=== PATIENT | female | born 1985 ===

== ENCOUNTER 2017-02-21 17:59 | Emergency (ER) | payer SELFPAY ==
[2017-02-21 18:00] VITALS: BMI 26.5
--- NOTE | 2017-02-21 18:18 | ED PDOC ---
Arrival/HPI - General Chief Complaint: Lower Extremity Problem/Injury Time Seen by Provider: 02/21/17 18:12 Historian: Patient - History of Present Illness Narrative History of Present Illness (Text): 02/21/17 18:16 31yo female present with left foot pain s/p twisting her foot yesterday. States she twisted her foot, while walking on uneven sidewalk. She notes that her pain is usually when she first steps on her foot, and then it improved as she walks on her foot. states she took 400mg of Aleve 3hours ago with some relieve. denies any other complaint. Past Medical History - Provider Review Nursing Documentation Reviewed: Yes - Infectious Disease Hx of Infectious Diseases: None - Cardiac Hx Cardiac Disorders: No - Pulmonary Hx Respiratory Disorders: No - Neurological Hx Neurological Disorder: No - HEENT Hx HEENT Disorder: No - Renal Hx Renal Disorder: No - Endocrine/Metabolic Hx Endocrine Disorders: No - Hematological/Oncological Hx Blood Disorders: No - Integumentary Hx Dermatological Disorder: No - Musculoskeletal/Rheumatological Other/Comment: FX TIB/FIB L - Gastrointestinal Hx Gastrointestinal Disorders: No - Genitourinary/Gynecological Hx Genitourinary Disorders: No - Psychiatric Hx Psychophysiologic Disorder: No Hx Substance Use: No - Surgical History Hx Musculoskeletal Surgery: Yes (tib-fib surgery) - Anesthesia Hx Anesthesia: Yes Family/Social History - Physician Review Nursing Documentation Reviewed: Yes Family/Social History: Unknown Family HX Smoking Status: Never Smoked Hx Alcohol Use: No Hx Substance Use: No Allergies/Home Meds Allergies/Adverse Reactions: Allergies No Known Allergies Allergy (Verified 02/21/17 18:05) Review of Systems - Physician Review All systems were reviewed & negative as marked: Yes - Review of Systems Constitutional: Normal Eyes: Normal ENT: Normal Respiratory: Normal Cardiovascular: Normal Gastrointestinal: Normal Genitourinary Female: Normal Musculoskeletal: Arthralgias (Left foot\) Skin: Normal Neurological: Normal Endocrine: Normal Hemo/Lymphatic: Normal Psychiatric: Normal Physical Exam Vital Signs Reviewed: Yes Vital Signs Temp Pulse Resp BP Pulse Ox 02/21/17 18:13 99.1 F 92 H 16 99 02/21/17 18:06 99.1 F 92 H 16 115/77 99 Temperature: Afebrile Blood Pressure: Normal Pulse: Regular Respiratory Rate: Normal Appearance: Positive for: Well-Appearing, Non-Toxic, Comfortable Pain Distress: None Mental Status: Positive for: Alert and Oriented X 3 - Systems Exam Head: Present: Atraumatic, Normocephalic Pupils: Present: PERRL Extroacular Muscles: Present: EOMI Conjunctiva: Present: Normal Mouth: Present: Moist Mucous Membranes Neck: Present: Normal Range of Motion Respiratory/Chest: Present: Clear to Auscultation, Good Air Exchange. No: Respiratory Distress, Accessory Muscle Use Cardiovascular: Present: Regular Rate and Rhythm, Normal S1, S2. No: Murmurs Abdomen: Present: Normal Bowel Sounds. No: Tenderness, Distention, Peritoneal Signs Back: Present: Normal Inspection Upper Extremity: Present: Normal Inspection. No: Cyanosis, Edema Lower Extremity: Present: NORMAL PULSES, Normal ROM, Neurovascularly Intact. No : Edema, Tenderness, Swelling, Erythema, Deformity, Temperature Abnormalties Neurological: Present: GCS=15, CN II-XII Intact, Speech Normal Skin: Present: Warm, Dry, Normal Color. No: Rashes Psychiatric: Present: Alert, Oriented x 3, Normal Insight, Normal Concentration Medical Decision Making ED Course and Treatment: 02/21/17 18:28 Left foot xray - No acute fracture/dislocation noted Result was DW the pt Mitchell wrap applied. Advised to apply ice to area. Referred to her PMD. TRT ED for any new or worsening symptoms. - RAD Interpretation Radiology Orders: 02/21/17 18:16 FOOT LEFT 3 VIEWS ROUTINE [RAD] Stat Disposition/Present on Arrival - Present on Arrival Any Indicators Present on Arrival: No History of DVT/PE: No History of Uncontrolled Diabetes: No Urinary Catheter: No History of Decub. Ulcer: No History Surgical Site Infection Following: None - Disposition Have Diagnosis and Disposition been Completed?: Yes Diagnosis: Foot sprain Disposition: HOME/ ROUTINE Disposition Time: 18:55 Patient Problems: Current Active Problems Problem Status Onset Foot sprain Acute Condition: STABLE Discharge Instructions (ExitCare): Foot Sprain (ED) Additional Instructions: follow up with your Doctor Return to ED for any new or worsening symptoms Prescriptions: Ibuprofen [Motrin Tab] 600 mg PO Q6 #20 tab Referrals: Grant Stokes MD [Staff Provider] - Follow up with primary
[2017-02-21 18:23] VITALS: BP 115/77; PULSE 92; RESP 16; TEMP 99.1; O2SAT 99
--- NOTE | 2017-02-22 10:51 | RAD ---
PROCEDURE: Left Foot Radiographs. HISTORY: foot pain s/p trauma COMPARISON: None. FINDINGS: BONES: Normal. No fracture. JOINTS: Normal. SOFT TISSUES: Normal. OTHER FINDINGS: None. IMPRESSION: Normal left foot radiographs. No preliminary interpretation rendered by the emergency department physician
== END 2017-02-21 19:00 | disposition home or self-care (01) ==
LOC: ED 17:59
DX: S93.602A Unspecified sprain of left foot, initial encounter (principal); X50.1XXA Overexertion from prolonged static or awkward postures, initial encounter; Y93.01 Activity, walking, marching and hiking; Y92.480 Sidewalk as the place of occurrence of the external cause

== ENCOUNTER 2017-06-10 21:07 | Emergency (ER) | payer SELFPAY ==
--- NOTE | 2017-06-10 21:11 | ED PDOC ---
Arrival/HPI - General Time Seen by Provider: 06/10/17 21:10 Historian: Patient - History of Present Illness Narrative History of Present Illness (Text): 06/10/17 21:11 31 y/o female, no significant pmh, nkda, c/o feeling an episode of chills when she take her dose of clarithromycin tonight which she had been taking it before with no problem. Pt. stated that she felt anxious as her heart is beating fast for few seconds, stated that she is concerning for her heart, no night sweat, no coughing, no numbness or tingling, no other medical or psychological complaints. Past Medical History - Provider Review Nursing Documentation Reviewed: Yes - Infectious Disease Hx of Infectious Diseases: None - Cardiac Hx Cardiac Disorders: No - Pulmonary Hx Respiratory Disorders: No - Neurological Hx Neurological Disorder: No - HEENT Hx HEENT Disorder: No - Renal Hx Renal Disorder: No - Endocrine/Metabolic Hx Endocrine Disorders: No - Hematological/Oncological Hx Blood Disorders: No - Integumentary Hx Dermatological Disorder: No - Musculoskeletal/Rheumatological Other/Comment: FX TIB/FIB L - Gastrointestinal Hx Gastrointestinal Disorders: No - Genitourinary/Gynecological Hx Genitourinary Disorders: No - Psychiatric Hx Psychophysiologic Disorder: No Hx Substance Use: No - Surgical History Hx Musculoskeletal Surgery: Yes (tib-fib surgery) - Anesthesia Hx Anesthesia: Yes Family/Social History - Physician Review Nursing Documentation Reviewed: Yes Family/Social History: Unknown Family HX Smoking Status: Never Smoked Hx Alcohol Use: No Hx Substance Use: No Allergies/Home Meds Allergies/Adverse Reactions: Allergies No Known Allergies Allergy (Verified 02/21/17 18:05) Review of Systems - Review of Systems Constitutional: absent: Fatigue, Fevers Eyes: absent: Vision Changes ENT: absent: Hearing Changes Respiratory: absent: SOB, Cough Cardiovascular: absent: Chest Pain Gastrointestinal: absent: Abdominal Pain, Nausea, Vomiting Musculoskeletal: absent: Arthralgias, Myalgias Skin: absent: Rash, Pruritis Neurological: absent: Headache, Dizziness, Focal Weakness, Gait Changes, Speech Changes, Facial Droop, Disequilibrium, Seizure Physical Exam Vital Signs Temp Pulse Resp BP Pulse Ox 06/11/17 00:05 92 H 16 105/74 100 06/10/17 21:08 98.4 F 108 H 22 108/65 100 - Systems Exam Head: Present: Atraumatic, Normocephalic Pupils: Present: PERRL Extroacular Muscles: Present: EOMI Conjunctiva: Present: Normal Mouth: Present: Moist Mucous Membranes Neck: Present: Normal Range of Motion Respiratory/Chest: Present: Clear to Auscultation, Good Air Exchange. No: Respiratory Distress, Accessory Muscle Use, Wheezes, Decreased Breath Sounds, Rales, Retracting, Rhonchi, Tachypneic, Tender to Palpation, Other Cardiovascular: Present: Regular Rate and Rhythm, Normal S1, S2, Other (no pedal edema). No: Murmurs, Irregular Rhythm, Peripheal Pulses Present, Tachycardic, Bradycardic, Rub, Gallop, Muffled Abdomen: Present: Normal Bowel Sounds. No: Tenderness, Distention, Peritoneal Signs Back: Present: Normal Inspection Upper Extremity: Present: Normal Inspection. No: Cyanosis, Edema Lower Extremity: Present: Normal Inspection. No: Edema Neurological: Present: GCS=15, Speech Normal, Motor Func Grossly Intact, Gait Normal, Memory Normal Skin: Present: Warm, Dry, Normal Color. No: Rashes Psychiatric: Present: Alert, Oriented x 3, Normal Insight, Normal Concentration Medical Decision Making ED Course and Treatment: 06/10/17 21:18 -ekg and chest xray -labs -observe and reassess 06/11/17 00:48 -Sinus tach @ 105 BPM, no ST elevation or depression, T wave inversion on lead III. -Chest xray: no active disease -Labs are non-significant, negative d-dimer -Pt. feels completely well now, asymptomatic, request to be discharged home. -Discharge home with education on follow up with your own pmd and clerk secretary within 2 days, return to the ER for any new or worsening signs or symptoms. - Lab Interpretations Lab Results: 06/10/17 22:23 06/10/17 22:23 Lab Results 06/10/17 22:23: D-Dimer, Quantitative 0.24 06/10/17 22:23: Sodium 139, Potassium 3.9, Chloride 102, Carbon Dioxide 24, Anion Gap 17, BUN 13, Creatinine 0.7, Est GFR ( Amer) > 60, Est GFR (Non- Af Amer) > 60, Random Glucose 118 H, Calcium 9.3, Total Bilirubin 0.3, AST 25, ALT 27, Alkaline Phosphatase 83, Total Protein 7.5, Albumin 4.1, Globulin 3.4, Albumin/Globulin Ratio 1.2 06/10/17 22:23: WBC 8.3, RBC 3.83, Hgb 10.8 L, Hct 32.9 L, MCV 85.9, MCH 28.2, MCHC 32.8, RDW 14.5, Plt Count 309, MPV 9.3, Gran % 66.1, Lymph % (Auto) 26.4, [place] % (Auto) 6.3 H, Eos % (Auto) 1.0 L, Baso % (Auto) 0.2, Gran # 5.47, Lymph # 2.2, [place] # 0.5, Eos # 0.1, Baso # 0.02 I have reviewed the lab results: Yes Interpretation: No clinic. lab abnormalty - RAD Interpretation Radiology Orders: 06/10/17 22:05 CHEST PORTABLE [RAD] Stat no active disease Grease Buffer: Radiologist - EKG Interpretation EKG Interpretation (Text): 06/10/17 23:41 Sinus tach @ 105 BPM, no ST elevation or depression, T wave inversion on lead III. Interpreted by ED Physician: Yes Type: 12 lead EKG - PA / DINING ROOM HELPER / Resident Statement / has reviewed & agrees with the documentation as recorded. Disposition/Present on Arrival - Present on Arrival Any Indicators Present on Arrival: No History of DVT/PE: No History of Uncontrolled Diabetes: No Urinary Catheter: No History of Decub. Ulcer: No History Surgical Site Infection Following: None - Disposition Have Diagnosis and Disposition been Completed?: Yes Diagnosis: General medical examination Disposition: HOME/ ROUTINE Disposition Time: 00:50 Patient Plan: Discharge Condition: GOOD Additional Instructions: -Discharge home with education on follow up with your own pmd and clerk secretary within 2 days, return to the ER for any new or worsening signs or symptoms. Referrals: Ivon Tovar DO [Primary Care Provider] - Follow up with primary Evelin Kowalski MD [Staff Provider] - Follow up with primary Forms: WORK NOTE
[2017-06-10 21:35] VITALS: TEMP 98.4; O2SAT 100
[2017-06-10 21:36] VITALS: BMI 31.1
[2017-06-10 22:39] LABS: BASO # 0.02 K/mm3 (0.0-2.0); BASO % 0.2 % (0.0-3.0); EOS # 0.1 (0.0-0.7); GRAN # 5.47 (1.4-6.5); GRAN % 66.1 % (50.0-68.0); HEMATOCRIT 32.9 % (36.0-48.0); LYMPH # 2.2 (1.2-3.4); LYMPH % 26.4 % (22.0-35.0); MEAN CELL VOLUME 85.9 fl (80.0-105.0); MEAN CORPUSCULAR HEMOGLOBIN 28.2 pg (25.0-35.0); MEAN CORPUSCULAR HGB CONC 32.8 g/dl (31.0-37.0); MEAN PLATELET VOLUME 9.3 fl (7.0-11.0); MONO # 0.5 (0.1-0.6); MONO % 6.3 % (1.0-6.0); RED CELL DISTRIBUTION WIDTH 14.5 % (11.5-14.5); WHITE BLOOD COUNT 8.3 10^3/ul (4.5-11.0)
[2017-06-10 22:47] LABS: ALB/GLOB RATIO 1.2 (1.1-1.8); ALKALINE PHOSPHATASE 83 U/L (38-126); ALT/SGPT 27 U/L (7-56); AST/SGOT 25 U/L (14-36); BILIRUBIN,TOTAL 0.3 mg/dL (0.2-1.3); BLOOD UREA NITROGEN 13 mg/dL (7-21); CALCIUM 9.3 mg/dL (8.4-10.5); CARBON DIOXIDE 24 mmol/L (21-33); CHLORIDE 102 mmol/L (95-110); GFR AFRICAN-AMERICAN > 60; GLUCOSE,RANDOM 118 mg/dL (70-110); POTASSIUM 3.9 mmol/L (3.6-5.0); SODIUM 139 mmol/L (132-148); TOTAL PROTEIN 7.5 g/dL (5.8-8.3)
[2017-06-11 00:06] VITALS: BP 105/74; PULSE 92; RESP 16
--- NOTE | 2017-06-11 08:58 | RAD ---
HISTORY: medical clearance COMPARISON: No prior. FINDINGS: LUNGS: No active pulmonary disease. PLEURA: No significant pleural effusion identified, no pneumothorax apparent. CARDIOVASCULAR: Normal. OSSEOUS STRUCTURES: No significant abnormalities. VISUALIZED UPPER ABDOMEN: Normal. OTHER FINDINGS: None. IMPRESSION: No active disease.
--- NOTE | 2017-06-11 09:06 | CARD ---
APPROVED REPORT EKG Measurement Heart [id number] <Conclusion> Sinus tachycardia Otherwise normal ECG
== END 2017-06-11 01:00 | disposition home or self-care (01) ==
LOC: ED 21:07
DX: Z04.8 Encounter for examination and observation for other specified reasons (principal)

== ENCOUNTER 2017-06-15 18:41 | Emergency (ER) | payer SELFPAY ==
[2017-06-15 18:42] VITALS: BMI 31.1
[2017-06-15 18:57] VITALS: TEMP 98.7; O2SAT 99
[2017-06-15 19:27] LABS: PH,URINE 6.5 (4.7-8.0); URINE BILIRUBIN NEGATIVE (NEGATIVE); URINE BLOOD SMALL (NEGATIVE); URINE GLUCOSE (UA) NEGATIVE (NEGATIVE); URINE KETONE NEGATIVE (NEGATIVE); URINE LEUKOCYTE ESTERASE NEGATIVE Leu/uL (NEGATIVE); URINE PROTEIN NEGATIVE mg/dL (<30 mg/dL); URINE UROBILINOGEN 0.2 E.U./dL (<1 E.U./dL)
[2017-06-15 19:31] LABS: BASO # 0.02 K/mm3 (0.0-2.0); BASO % 0.3 % (0.0-3.0); EOS # 0.1 (0.0-0.7); EOS % 1.3 % (1.5-5.0); GRAN # 4.31 (1.4-6.5); GRAN % 56.2 % (50.0-68.0); HEMATOCRIT 36.5 % (36.0-48.0); LYMPH # 2.8 (1.2-3.4); LYMPH % 36.1 % (22.0-35.0); MEAN CELL VOLUME 85.9 fl (80.0-105.0); MEAN CORPUSCULAR HEMOGLOBIN 28.5 pg (25.0-35.0); MEAN CORPUSCULAR HGB CONC 33.2 g/dl (31.0-37.0); MEAN PLATELET VOLUME 9.4 fl (7.0-11.0); MONO # 0.5 (0.1-0.6); MONO % 6.1 % (1.0-6.0); RED CELL DISTRIBUTION WIDTH 14.8 % (11.5-14.5); URINE APPEARANCE CLEAR (CLEAR); URINE COLOR LIGHT YELLOW (YELLOW); WHITE BLOOD COUNT 7.7 10^3/ul (4.5-11.0)
[2017-06-15 19:39] LABS: URINE BACTERIA MOD (NEG); URINE WBC 0 - 2 /hpf (0-6)
[2017-06-15 19:43] LABS: ALB/GLOB RATIO 1.3 (1.1-1.8); ALKALINE PHOSPHATASE 84 U/L (38-126); ALT/SGPT 24 U/L (7-56); AST/SGOT 31 U/L (14-36); BILIRUBIN,TOTAL 0.3 mg/dL (0.2-1.3); BLOOD UREA NITROGEN 12 mg/dL (7-21); CALCIUM 9.7 mg/dL (8.4-10.5); CARBON DIOXIDE 26 mmol/L (21-33); CHLORIDE 101 mmol/L (98-107); GFR AFRICAN-AMERICAN > 60; GLUCOSE,RANDOM 92 mg/dL (70-110); LIPASE 124 U/L (23-300); POTASSIUM 3.9 mmol/L (3.6-5.0); SODIUM 138 mmol/L (132-148); TOTAL PROTEIN 7.9 g/dL (5.8-8.3)
--- NOTE | 2017-06-15 20:17 | ED PDOC ---
Arrival/HPI - General Chief Complaint: Back Pain Time Seen by Provider: 06/15/17 19:07 Historian: Patient - History of Present Illness Narrative History of Present Illness (Text): 06/15/17 20:12 31-year-old female presents today with left-sided back pain that has been gradually worsening over the past 2 weeks. Patient states the pain is located on the left side and is worse with movement. Patient describes the pain as a sharp stabbing pain that is nonradiating. She denies any urinary symptoms. Denies abdominal pain. No nausea or vomiting. Denies fevers or chills. 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 Patient presents concerned about the pain and that it may be related to her cyst on her spleen. No medications have been taken for pain at home. Patient denies numbness weakness or tingling in the lower extremities. Time/Duration: > week Quality: Aching, Stabbing Severity Level: 4 Past Medical History - Provider Review Nursing Documentation Reviewed: Yes - Travel History Have you recently traveled outside [place] w/in the past 3 mons?: No - Infectious Disease Hx of Infectious Diseases: None - Tetanus Immunization Tetanus Immunization: Unknown - Cardiac Hx Cardiac Disorders: No - Pulmonary Hx Respiratory Disorders: No - Neurological Hx Neurological Disorder: No - HEENT Hx HEENT Disorder: No - Renal Hx Renal Disorder: No - Endocrine/Metabolic Hx Endocrine Disorders: No - Hematological/Oncological Hx Blood Disorders: No - Integumentary Hx Dermatological Disorder: No - Musculoskeletal/Rheumatological Other/Comment: FX TIB/FIB L - Gastrointestinal Hx Gastrointestinal Disorders: No - Genitourinary/Gynecological Hx Genitourinary Disorders: No - Psychiatric Hx Psychophysiologic Disorder: No Hx Substance Use: No - Surgical History Hx Musculoskeletal Surgery: Yes (tib-fib surgery) - Anesthesia Hx Anesthesia: Yes Family/Social History - Physician Review Nursing Documentation Reviewed: Yes Family/Social History: Unknown Family HX Smoking Status: Never Smoked Hx Alcohol Use: No Hx Substance Use: No Allergies/Home Meds Allergies/Adverse Reactions: Allergies clarithromycin Allergy (Verified 06/15/17 18:57) ANAPHYLAXIS Review of Systems - Review of Systems Constitutional: absent: Fatigue, Fevers Respiratory: absent: SOB, Cough Cardiovascular: absent: Chest Pain, Palpitations Gastrointestinal: absent: Abdominal Pain, Diarrhea, Nausea, Vomiting Genitourinary Female: absent: Dysuria, Frequency, Hematuria Musculoskeletal: Back Pain. absent: Arthralgias, Neck Pain Skin: absent: Rash, Pruritis Neurological: absent: Headache, Dizziness Psychiatric: absent: Anxiety, Depression Physical Exam Vital Signs Reviewed: Yes Vital Signs Temp Pulse Resp BP Pulse Ox 06/15/17 18:58 98.7 F 84 18 122/68 99 06/15/17 18:56 98.7 F 84 16 122/68 99 Temperature: Afebrile Blood Pressure: Normal Pulse: Regular Respiratory Rate: Normal Appearance: Positive for: Well-Appearing, Non-Toxic, Comfortable Pain Distress: None Mental Status: Positive for: Alert and Oriented X 3 - Systems Exam Head: Present: Atraumatic Mouth: Present: Moist Mucous Membranes Neck: Present: Normal Range of Motion Respiratory/Chest: Present: Clear to Auscultation, Good Air Exchange. No: Respiratory Distress, Accessory Muscle Use Cardiovascular: Present: Regular Rate and Rhythm, Normal S1, S2. No: Murmurs Abdomen: No: Tenderness, Distention, Peritoneal Signs, Guarding Back: Present: Normal Inspection, Other (+ LEFT FLANK TENDERNESS). No: CVA Tenderness, Midline Tenderness Upper Extremity: Present: Normal Inspection, Normal ROM Lower Extremity: Present: Normal Inspection, Normal ROM Neurological: Present: GCS=15, Speech Normal Skin: Present: Warm, Dry, Normal Color. No: Rashes Psychiatric: Present: Alert, Oriented x 3 Medical Decision Making ED Course and Treatment: 06/15/17 20:15 Patient is nontoxic well appearing with stable vital signs presenting with left- sided flank/back pain 2 weeks pt given toradol for pain. CBC WNL CMP WNL Lipase WNL Urinalysis: + BLOOD, NO LEUKOCYTES CAT scan:FINDINGS: Lower thorax: Heart size is normal. Lung bases are clear ABDOMEN: Liver: unremarkable Gallbladder and bile ducts: unremarkable Pancreas: unremarkable Spleen: There is a cyst in the spleen. There is an accessory spleen in the left upper quadrant. Adrenals: unremarkable Kidneys and ureters: Kidneys are unremarkable. There is mild bilateral pelvocaliectasis. There is no ureterectasis. Stomach and bowel: Stomach is partially distended with ingested material. Rotation is normal. There is no obstruction.Appendix and terminal ileum are unremarkable.Colon is incompletely distended which limits evaluation. There is scattered diverticulosis. Appendix: See above. PELVIS: Bladder: Urinary bladder is unremarkable. Reproductive: Uterus and adnexal structures are unremarkable. ABDOMEN and PELVIS: Intraperitoneal space: There is no free air or free fluid. Bones/joints: There is minimal degenerative osseous change. Soft tissues: There is a small fat-containing supraumbilical ventral hernia. There is minimal inflammation in herniated fat. There is a tiny fat containing umbilical hernia without inflammation. Vasculature: Vascular structures are unremarkable. Lymph nodes: There is no pathologic adenopathy. IMPRESSION: No renal or ureteral stones; bilateral pelvocaliectasis without ureterectasis suggesting impedance at the ureteropelvic junctions and possible intermittent ureteropelvic junction obstruction; splenic cyst; no appendicitis or diverticulitis Urologic consultation advised Additional findings as described above Patient reassessment:FEELING BETTER; NO DISTRESS. Patient nontoxic well-appearing in no distress with stable vital signs. spoke with dr. ram (urologist) discussed the case in depth, discussed CT findings of bilateral pelvocaliectasis without ureterectasis suggesting impedance at the ureteropelvic junctions and possible intermittent ureteropelvic junction obstruction. HE advised f/u outpatient in the office. Discussed all results with patient in depth. STRESSED importance of follow-up with the urologist within the next 2 days. I've advised pt to return if symptoms worsen persist or if new concerning symptoms develop Patient verbalizes understanding of discharge instructions and need for immediate followup. all aspects of this case were discussed the attending of record. Impression: back pain, SPLENIC CYST, pelvocaliectasis Motrin every 6 hours as needed for pain Flexeril; 1 tablet every 8 hours as needed for muscle spasms; may cause drowsiness. Follow up with primary care physician within the next 2 days Follow up with the Urologist within the next 2 days. Follow up with the office receptionist within the next 2 days. Return immediately if symptoms worsen persist or if new symptoms develop: High fevers, increasing pain, vomiting, diarrhea or any other concerning symptoms develop 06/15/17 21:20 - Lab Interpretations Lab Results: 06/15/17 19:15 06/15/17 19:15 Lab Results 06/15/17 19:15: WBC 7.7, RBC 4.25, Hgb 12.1, Hct 36.5, MCV 85.9, MCH 28.5, MCHC 33.2, RDW 14.8 H, Plt Count 357, MPV 9.4, Gran % 56.2, Lymph % (Auto) 36.1 H, [place] % (Auto) 6.1 H, Eos % (Auto) 1.3 L, Baso % (Auto) 0.3, Gran # 4.31, Lymph # 2.8, [place] # 0.5, Eos # 0.1, Baso # 0.02 06/15/17 19:15: Sodium 138, Potassium 3.9, Chloride 101, Carbon Dioxide 26, Anion Gap 15, BUN 12, Creatinine 0.6, Est GFR ( Amer) > 60, Est GFR (Non- Af Amer) > 60, Random Glucose 92, Calcium 9.7, Total Bilirubin 0.3, AST 31, ALT 24, Alkaline Phosphatase 84, Total Protein 7.9, Albumin 4.5, Globulin 3.4, Albumin/Globulin Ratio 1.3, Lipase 124 06/15/17 19:15: Urine Color Light yellow, Urine Appearance Clear, Urine pH 6.5, Ur Specific [place] 1.020, Urine Protein Negative, Urine Glucose (UA) Negative, Urine Ketones Negative, Urine Blood Small H, Urine Nitrate Negative, Urine Bilirubin Negative, Urine Urobilinogen 0.2, Ur Leukocyte Esterase Negative, Urine RBC 2 - 5, Urine WBC 0 - 2, Ur Epithelial Cells 4 - 5, Urine Bacteria Mod - RAD Interpretation Radiology Orders: 06/15/17 19:07 ABD & PELVIS W/O PO OR IV CONT [CT] Stat - Medication Orders Current Medication Orders: Discontinued Medications Ketorolac Tromethamine (Toradol) 30 mg IVP STAT STA Stop: 06/15/17 19:09 Last Admin: 06/15/17 19:57 Dose: 30 mg MAR Pain Assessment Document 06/15/17 19:57 RD (Rec: 06/15/17 19:57 RD [id number]) Pain Reassessment Is this a pain reassessment? No Sleep Is patient sleeping during reassessment? No Presence of Pain Presence of Pain Yes IVP Administration Document 06/15/17 19:57 RD (Rec: 06/15/17 19:57 RD [id number]) Charges for Administration # of IVP Administrations 1 Disposition/Present on Arrival - Present on Arrival Any Indicators Present on Arrival: No History of DVT/PE: No History of Uncontrolled Diabetes: No Urinary Catheter: No History of Decub. Ulcer: No History Surgical Site Infection Following: None - Disposition Have Diagnosis and Disposition been Completed?: Yes Diagnosis: Back pain, Splenic lesion, Pelvicaliectasis Disposition: HOME/ ROUTINE Disposition Time: 21:00 Patient Plan: Discharge Patient Problems: Current Active Problems Problem Status Onset Back pain Acute Pelvicaliectasis Acute Splenic lesion Acute Condition: GOOD Discharge Instructions (ExitCare): Back Pain (ED) Additional Instructions: Motrin every 6 hours as needed for pain Flexeril; 1 tablet every 8 hours as needed for muscle spasms; may cause drowsiness. Follow up with primary care physician within the next 2 days Follow up with the Urologist within the next 2 days. Follow up with the office receptionist within the next 2 days. Return immediately if symptoms worsen persist or if new symptoms develop: High fevers, increasing pain, vomiting, diarrhea or any other concerning symptoms develop Prescriptions: Cyclobenzaprine [Cyclobenzaprine HCl] 10 mg PO Q8 #10 tab Ibuprofen [Motrin] 600 mg PO Q6H PRN #20 tab PRN Reason: pain/fever reduction Referrals: Kenan Dennison MD [Staff Provider] - Follow up with primary Arsenio Zamorano MD [Staff Provider] - Follow up with primary Mary Negron MD [Staff Provider] - Follow up with primary Willem Mishra MD [Staff Provider] - Follow up with primary Inocente Ram MD [Staff Provider] - Follow up with primary Forms: [employer] (Japanese), WORK NOTE
--- NOTE | 2017-06-15 21:01 | CT ---
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 All CT scans at this facility use one or more dose reduction techniques, viz.: automated exposure control; ma/kV adjustment per patient size (including targeted exams where dose is matched to indication; i.e. head); or iterative reconstruction technique. Coronal and sagittal reformatted images were created and reviewed. COMPARISON: There are no prior studies for comparison. FINDINGS: Lower thorax: Heart size is normal. Lung bases are clear ABDOMEN: Liver: unremarkable Gallbladder and bile ducts: unremarkable Pancreas: unremarkable Spleen: There is a cyst in the spleen. There is an accessory spleen in the left upper quadrant. Adrenals: unremarkable Kidneys and ureters: Kidneys are unremarkable. There is mild bilateral pelvocaliectasis. There is no ureterectasis. Stomach and bowel: Stomach is partially distended with ingested material. Rotation is normal. There is no obstruction.Appendix and terminal ileum are unremarkable.Colon is incompletely distended which limits evaluation. There is scattered diverticulosis. Appendix: See above. PELVIS: Bladder: Urinary bladder is unremarkable. Reproductive: Uterus and adnexal structures are unremarkable. ABDOMEN and PELVIS: Intraperitoneal space: There is no free air or free fluid. Bones/joints: There is minimal degenerative osseous change. Soft tissues: There is a small fat-containing supraumbilical ventral hernia. There is minimal inflammation in herniated fat. There is a tiny fat containing umbilical hernia without inflammation. Vasculature: Vascular structures are unremarkable. Lymph nodes: There is no pathologic adenopathy. IMPRESSION: No renal or ureteral stones; bilateral pelvocaliectasis without ureterectasis suggesting impedance at the ureteropelvic junctions and possible intermittent ureteropelvic junction obstruction; splenic cyst; no appendicitis or diverticulitis Urologic consultation advised Additional findings as described above.
[2017-06-15 21:28] VITALS: BP 122/61; PULSE 85; RESP 189
== END 2017-06-15 21:27 | disposition home or self-care (01) ==
LOC: ED 18:41
DX: M54.9 Dorsalgia, unspecified (principal); D73.89 Other diseases of spleen; N28.89 Other specified disorders of kidney and ureter
CPT/HCPCS: 74176; 80053; 81001; 83690; 85025; 96374; 99283; J1885

== ENCOUNTER 2018-09-10 11:08 | Emergency (ER) | payer SELFPAY ==
[2018-09-10 11:08] VITALS: BMI 31.1
--- NOTE | 2018-09-10 11:52 | ED PDOC ---
Arrival/HPI - General Chief Complaint: Back Pain Time Seen by Provider: 09/10/18 11:22 Historian: Patient - History of Present Illness Narrative History of Present Illness (Text): 09/10/18 11:42 A 32 year old female, whose past medical history includes cyst on spleen as reported by the patient, presents to the emergency department with a complaint of left flank pain. The patient notes that she has been experiencing sharp, int ermittent pain for a few months. She reports exacerbation of the pain when coughing, sneezing, and taking deep breaths. She reports that the last time she was seen in the emergency department about 1 year ago, she was told she had "swollen kidneys". The patient followed up with Dr. Gunn for her symptoms. The patient denies fevers, chills, headache, dizziness, chest pain, shortness of breath, dyspnea on exertion, cough, abdominal pain, nausea, vomiting, diarrhea, neck pain, frequency, dysuria, hematuria, urinary/bowel changes, or any other complaint. Urologist: Dr. Gunn Time/Duration: Other (Several months) Symptom Onset: Sudden Symptom Course: Unchanged Activities at Onset: Rest, Light Context: Home Past Medical History - Provider Review Nursing Documentation Reviewed: Yes - Infectious Disease Hx of Infectious Diseases: None - Tetanus Immunization Tetanus Immunization: Unknown - Cardiac Hx Cardiac Disorders: No - Pulmonary Hx Respiratory Disorders: No - Neurological Hx Neurological Disorder: No - HEENT Hx HEENT Disorder: No - Renal Hx Renal Disorder: No - Endocrine/Metabolic Hx Endocrine Disorders: No - Hematological/Oncological Hx Blood Disorders: No - Integumentary Hx Dermatological Disorder: No - Musculoskeletal/Rheumatological Other/Comment: FX TIB/FIB L - Gastrointestinal Hx Gastrointestinal Disorders: No - Genitourinary/Gynecological Hx Genitourinary Disorders: No - Psychiatric Hx Psychophysiologic Disorder: No Hx Substance Use: No - Surgical History Hx Musculoskeletal Surgery: Yes (tib-fib surgery) Other/Comment: hardware removal 2013 - Anesthesia Hx Anesthesia: Yes Hx Anesthesia Reactions: No Hx Malignant Hyperthermia: No Family/Social History - Physician Review Nursing Documentation Reviewed: Yes Family/Social History: No Known Family HX Smoking Status: Never Smoked Hx Alcohol Use: No Hx Substance Use: No Allergies/Home Meds Allergies/Adverse Reactions: Allergies clarithromycin Allergy (Verified 06/15/17 18:57) ANAPHYLAXIS Review of Systems - Physician Review All systems were reviewed & negative as marked: Yes - Review of Systems Constitutional: absent: Fevers Respiratory: absent: SOB, Cough Cardiovascular: absent: Chest Pain, LEBRON Gastrointestinal: absent: Abdominal Pain, Stool Changes, Diarrhea, Nausea, Vomiting Genitourinary Female: absent: Urine Output Changes Musculoskeletal: Back Pain (Flank pain). absent: Neck Pain Neurological: absent: Headache, Dizziness Physical Exam - Physical Exam Narrative Physical Exam (Text): Gen: VS reviewed, alert, well developed, well nourished, nontoxic, mild distress. ENT: normal pharynx. Eye: EOMI, PERRL. Neck: no JVD, supple, no adenopathy. CV: regular rate, regular rhythm, no rubs, no murmur, no gallops, S1, S2, pulses equal and strong. Pulm: no distress, clear to auscultation, no wheeze, no rhonchi, breath sounds equal, no rales. Abd: soft, nontender, no guarding, no rebound, no rigidity, normal bowel sounds. Ext: no edema. Back: Left CVA tenderness Skin: good color, no rash, no cyanosis. Psych: responds appropriately to questions, normal affect. Neuro: oriented x 3, CN2-12 intact grossly, motor intact, sensation intact. Vital Signs Reviewed: Yes Vital Signs Temp Pulse Resp BP Pulse Ox 09/10/18 11:08 99.2 F 102 H 18 127/85 97 Temperature: Afebrile Blood Pressure: Normal Pulse: Tachycardic Respiratory Rate: Normal Appearance: Positive for: Well-Appearing, Non-Toxic, Comfortable Pain Distress: None Mental Status: Positive for: Alert and Oriented X 3 Medical Decision Making ED Course and Treatment: 09/10/18 12:02 Impression: A 32 year old female presents to the emergency department with a complaint of left sided flank pain. Plan: -- Abdomen/Pelvis CT -- Urine Culture -- Urinalysis -- Labs -- Reassess and disposition Prior Visits: Notes and results from previous visits were reviewed. Progress Notes: 09/10/18 13:50 patient seen for left flank pain, clearly exacerbated with movement. no s/s to suggest pulmonary embolism and i do not feel the symptoms could be pleurisy as there are no particular abnormal findings at the base of the lung on CT. furthermore the patient does not exhibit does not have cardiopulmonary symptoms. it is possible that since the cyst in the spleen has enlarged it may be the cause of her pain. with that, will refer to general surgery. patient understands and is agreeable to plan and will return immediately for any new or worsening symptoms. - Lab Interpretations I have reviewed the lab results: Yes - Scribe Statement The provider has reviewed the documentation as recorded by the Scribe Dina Segovia Provider Scribe Attestation: All medical record entries made by the Scribe were at my direction and personally dictated by me. I have reviewed the chart and agree that the record accurately reflects my personal performance of the history, physical exam, medical decision making, and the department course for this patient. I have also personally directed, reviewed, and agree with the discharge instructions and disposition. Disposition/Present on Arrival - Present on Arrival Any Indicators Present on Arrival: No History of DVT/PE: No History of Uncontrolled Diabetes: No Urinary Catheter: No History of Decub. Ulcer: No History Surgical Site Infection Following: None - Disposition Have Diagnosis and Disposition been Completed?: Yes Diagnosis: Flank pain, Cyst of spleen Disposition: HOME/ ROUTINE Disposition Time: 13:57 Patient Plan: Discharge Condition: STABLE Discharge Instructions (ExitCare): Flank Pain (DC) Additional Instructions: Return for any new or worsening symptoms especially shortness of breath, escalating green, dizziness. Follow up with a general surgeon to discuss the cyst in the spleen. EDDIE CARD, thank you for letting us take care of you today. Your provider was Dr. Cristóbal Morrison and you were treated for left flank pain. The emergency medical care you received today was directed at your acute symptoms. If you were prescribed any medication, please fill it and take as directed. It may take several days for your symptoms to resolve. Return to the Emergency Department if your symptoms worsen, do not improve, or if you have any other problems. Please contact your doctor or call one of the physicians/clinics you have been referred to that are listed on the Patient Visit Information form that is included in your discharge packet. Bring any paperwork you were given at discharge with you along with any medications you are taking to your follow up visit. Our treatment cannot replace ongoing medical care by a primary care provider outside of the emergency department. Thank you for allowing the [facility] team to be part of your care today. If you had an X-Ray or CT scan: A Radiologist will review the ED reading if any change in treatment is needed we will contact you. If you had a blood, urine, or wound culture: It will take several days for the results, if any change in treatment is needed we will contact you. If you had an STI test: It will take 48 hours for the results. Please call after 1 week if you have not heard back. Prescriptions: Ibuprofen [Motrin Tab] 600 mg PO QID #42 tab Referrals: PCP,NO [Non-Staff] - Follow up with primary [facility] [Outside] - Follow up with primary Sandy Aquino MD [Staff Provider] - Follow up with primary Forms: [facility] (Gabonese), WORK NOTE
[2018-09-10 12:16] LABS: BASO # 0.03 K/mm3 (0.0-2.0); BASO % 0.5 % (0.0-3.0); EOS # 0.2 (0.0-0.7); EOS % 2.5 % (1.5-5.0); GRAN # 3.19 (1.4-6.5); GRAN % 52.3 % (50.0-68.0); HEMOGLOBIN 11.9 g/dL (12.0-16.0); LYMPH # 2.2 (1.2-3.4); LYMPH % 35.7 % (22.0-35.0); MEAN CELL VOLUME 86.7 fl (80.0-105.0); MEAN CORPUSCULAR HEMOGLOBIN 28.7 pg (25.0-35.0); MEAN CORPUSCULAR HGB CONC 33.1 g/dl (31.0-37.0); MEAN PLATELET VOLUME 9.7 fl (7.0-11.0); MONO # 0.6 (0.1-0.6); RBC 4.15 10^6/uL (3.5-6.1); RED CELL DISTRIBUTION WIDTH 14.8 % (11.5-14.5); WHITE BLOOD COUNT 6.1 10^3/uL (4.5-11.0)
[2018-09-10 12:21] LABS: URINE BILIRUBIN NEGATIVE (NEGATIVE); URINE BLOOD SMALL (NEGATIVE); URINE GLUCOSE (UA) NEGATIVE (NEGATIVE); URINE LEUKOCYTE ESTERASE NEGATIVE Leu/uL (NEGATIVE); URINE PROTEIN NEGATIVE mg/dL (<30 mg/dL); URINE UROBILINOGEN 0.2 E.U./dL (<1 E.U./dL)
[2018-09-10 12:24] LABS: URINE APPEARANCE CLEAR (CLEAR); URINE COLOR LIGHT YELLOW (YELLOW)
[2018-09-10 12:32] LABS: URINE WBC NEGATIVE /hpf (0-6)
--- NOTE | 2018-09-10 13:14 | CT ---
Date of service: 09/10/2018 PROCEDURE: CT Abdomen and Pelvis without intravenous contrast HISTORY: left flank pain COMPARISON: 06/15/2017 TECHNIQUE: Without contrast.. Contrast dose: Radiation dose: Total exam DLP = 866.08 mGy-cm. This CT exam was performed using one or more of the following dose reduction techniques: Automated exposure control, adjustment of the mA and/or kV according to patient size, and/or use of iterative reconstruction technique. FINDINGS: LOWER THORAX: Unremarkable. LIVER: Unremarkable. No gross lesion or ductal dilatation. GALLBLADDER AND BILE DUCTS: Unremarkable. PANCREAS: Unremarkable. No gross lesion or ductal dilatation. SPLEEN: There is a low-density probably cystic lesion in the spleen that has increased in size from 22-30 mm in diameter. ADRENALS: Unremarkable. No mass. KIDNEYS AND URETERS: Unremarkable. No hydronephrosis. No solid mass. VASCULATURE: Unremarkable. No aortic aneurysm. No aortic atherosclerotic calcification or mural plaque present. BOWEL: Unremarkable. No obstruction. No gross mural thickening. APPENDIX: Unremarkable. Normal appendix. PERITONEUM: Unremarkable. No free fluid. No free air. LYMPH NODES: Unremarkable. No enlarged lymph nodes. BLADDER: Unremarkable. REPRODUCTIVE: Unremarkable. BONES: No acute fracture. OTHER FINDINGS: None. IMPRESSION: Unremarkable non contrast enhanced CT of the abdomen and pelvis.
[2018-09-10 13:29] LABS: BLOOD UREA NITROGEN 7 mg/dL (7-21); CALCIUM 9.1 mg/dL (8.4-10.5); GFR NON-AFRICAN AMERICAN > 60
[2018-09-10 14:12] VITALS: BP 124/68; PULSE 72; RESP 19; TEMP 98.7; O2SAT 100
== END 2018-09-10 14:20 | disposition home or self-care (01) ==
LOC: ED 11:08
DX: D73.4 Cyst of spleen (principal); R10.9 Unspecified abdominal pain